=== PATIENT | female | born 1945 ===

== ENCOUNTER 2017-01-27 13:35 | Outpatient (CLI) | payer MEDICARE, OTHER ==
[2017-01-27 13:47] VITALS: BP 126/69
[2017-01-27] MEDS ORDERED: UNOBMED (15:21)
--- NOTE | 2017-01-27 15:23 | GI Initial Consult Note ---
History of Present Illness General Date patient seen: Jan 27, 2017 Time patient seen: 15:15 Referring physician: WIN Reason for Consultation: ABDOMINAL PAIN Present Illness HPI 71 year old female patient referred by Dr. Israel for evaluation of abdominal pain and bloating. Patient denies any changes in weight and changes in dietary habits. Patient unable to recall any medications at this moment, states she takes one for cholesterol, heart, depression and HTN. Home Meds Reported Medications Unable to Obtain Medications (UNABLE TO OBTAIN MEDS) 1 Ea Ea 01/27/17 Allergies: Coded Allergies: No Known Allergies (Verified Allergy, Unknown, 11/16/07) Patient History History Provided By: Patient PMH Narrative HTN cholesterol depression PSHx Hysterectomy Neck Family History Narrative Mother & Brother >> gastric CA Social History: Denies: smoking, alcohol use, drug use, other Review of Systems All Other Systems: negative except mentioned in HPI Physical Exam Vital Signs Date Time Temp Pulse Resp B/P (MAP) Pulse Ox O2 Delivery O2 Flow Rate FiO2 01/27/17 13:47 97.8 67 16 126/69 93 Sp02 EP Interpretation: reviewed General Appearance: well appearing, no apparent distress, alert Head: normocephalic EENT: PERRL/EOMI, normal ENT inspection, TMs normal Neck: supple Respiratory: normal breath sounds, no respiratory distress Cardiovascular: normal rate Gastrointestinal: normal inspection, non tender, soft Rectal: deferred Musculoskeletal: back normal Neurologic: normal inspection, alert, oriented x3, responsive Psychiatric: normal inspection, judgement/insight normal, memory normal Skin: normal inspection, normal color, no rash, warm/dry, palpation normal Lymphatic: normal inspection, no adenopathy GI: Plan Problems: (1) Colonoscopy planned (2) HTN (hypertension) (3) Elevated cholesterol (4) Depression (5) GERD (gastroesophageal reflux disease) (6) Bloating Plan EGD/colonoscopy scheduled for 01/29/17. - CLD & prep instructions given and acknowledged. Seen with Dr. Grubbs. Thank you for referring this patient. Hemalatha Lazcano N.P. Jan 27, 2017 15:23
== END 2017-01-27 14:00 | disposition home or self-care (01) ==
LOC: PAN 13:35
DX: K21.9 Gastro-esophageal reflux disease without esophagitis (principal); R14.0 Abdominal distension (gaseous); E78.00 Pure hypercholesterolemia, unspecified; I10 Essential (primary) hypertension; F32.9 Major depressive disorder, single episode, unspecified; Z90.710 Acquired absence of both cervix and uterus; Z80.0 Family history of malignant neoplasm of digestive organs
CPT/HCPCS: 99201

== ENCOUNTER 2017-01-29 08:22 | Day surgery (SDC) | payer MEDICARE, OTHER ==
[2017-01-29] VITALS (8 sets, daily range): BP systolic 120–138; BP diastolic 59–72
[~2017-01-29] VITALS: Ht 170 cm; Wt 77.1 kg
[~2017-01-29 08:22] MED LIST: UNOBMED
--- NOTE | 2017-01-29 09:02 | Anethesia Preoperative Eval ---
Anesthesia Pre-op PMH/ROS General Date of Evaluation: Jan 29, 2017 Time of Evaluation: 09:30 Anesthesiologist: Mendy ASA Score: ASA 2 Mallampati Score Class I : Soft palate, uvula, fauces, pillars visible Class II: Soft palate, uvula, fauces visible Class III: Soft palate, base of uvula visible Class IV: Only hard plate visible Mallampati Classification: Class II Surgeon: Romie Surgical Procedure: EGD/Colonoscopy Anesthesia History: none Family History: no anesthesia problems Allergies: Coded Allergies: No Known Allergies (Verified Allergy, Unknown, 11/16/07) Medications: see eMAR Past Medical History Cardiovascular: Reports: HTN, other - high cholosterol Pulmonary: Denies: asthma, COPD, ALLIE, other Gastrointestinal/Genitourinary: Reports: GERD Neurologic/Psychiatric: Reports: depression/anxiety Endocrine: Denies: DM, hypothyroidism, steroids, other HEENT: Denies: cataract (L), cataract (R), glaucoma, FOND [place] LAC (L), FOND DU LAC (R), other Hematology/Immune: Denies: anemia, DVT, bleeding disorder, other Musculoskeletal/Integumentary: Denies: OA, RA, DJD, DDD, edema, other Other: obesity Anesthesia Pre-op Phys. Exam Physician Exam Last Vital Signs Date Time Temp Pulse Resp B/P (MAP) Pulse Ox O2 Delivery O2 Flow Rate FiO2 01/29/17 08:52 98.5 60 18 138/72 95 Room Air Constitutional: NAD Neurologic: CN 2-12 intact Cardiovascular: RRR Respiratory: CTA Gastrointestinal: S/NT/ND Airway Exam Mallampati Score: Class II MO: full ROM: full Teeth: missing Dentures: upper, lower Anesthesia Pre-op A/P Labs reviewed on chart Studies Pre-op Studies: EKG - NSB Risk Assessment & Plan Plan: MAC Status Change Before Surgery: No Pre-Antibiotics Given Within 1 Hr of Incision: Jordana Morrison CRNA Jan 29, 2017 09:02
[2017-01-29] MEDS ORDERED: NKM (09:22)
[2017-01-29] MEDS ORDERED: CHOLESTEROL MED (09:25)
[2017-01-29] MEDS ORDERED: UNOBMED (09:27)
[2017-01-29] MEDS ORDERED: Midazolam 2mg/2ml Inj ONE (09:30)
[2017-01-29] MEDS ORDERED: Propofol 200mg/20ml IV ONE (09:30)
--- NOTE | 2017-01-29 09:41 | Short Stay Surgery H&P ---
History of Present Illness History of Present Illness Chief Complaint see recent consult HPI Venecia Zavala is a 71 year old female who was admitted on for Gerd,Colon Screening Patient History Allergies: Coded Allergies: No Known Allergies (Verified Allergy, Unknown, 11/16/07) PAST MEDICAL HISTORY: Past Surgeries: Social History: Medication History Miscellaneous Medications Unable to Obtain Medications (Unable To Obtain Meds), (Reported) [Cholesterol Med], Unknown Dose, (Reported) Physical Exam Vital Signs Last Vital Signs Date Time Temp Pulse Resp B/P (MAP) Pulse Ox O2 Delivery O2 Flow Rate FiO2 01/29/17 08:52 98.5 60 18 138/72 95 Room Air Plan Attestation Are the patient's medical conditions optimized for surgery? TERESA YANCEY Jan 29, 2017 09:41
--- NOTE | 2017-01-29 09:41 | Pre-Procedure Note/Attestation ---
Pre-Procedure Note/Attestation Complete Prior to Procedure Planned Procedure: not applicable Procedure Narrative: esophagogastroduodenoscopy and colonoscopy Indications for Procedure Pre-Operative Diagnosis: screening colon, GERD Attestation I attest that I discussed the nature of the procedure; its benefits; risks and complications; and alternatives (and the risks and benefits of such alternatives ), prior to the procedure, with the patient (or the patient's legal sales representative malt liquors). I attest that, if there was a reasonable possibility of needing a blood transfusion, the patient (or the patient's legal sales representative malt liquors) was given the [facility] standardized written summary, pursuant to the [place] Blood Safety Act ([place] Health and Safety Code # 1645, as amended). I attest that I re-evaluated the patient just prior to the surgery and that there has been no change in the patient's H&P, except as documented below: TERESA YANCEY Jan 29, 2017 09:41
[2017-01-29] MEDS ORDERED: fentaNYL 100 mcg/2 mL IV PRN (10:15)
--- NOTE | 2017-01-29 10:22 | Endoscopy Procedure Note ---
Endoscopy Procedure Note Indication for Procedure: screening colon, GERD Procedures Performed: EGD, colonoscopy Operative Findings/Diagnosis: 4 colon polyps, diverticulosis, gastritis Specimen: yes Pt Tolerated Procedure Well: Yes Anesthesiologist: sonia Anesthesia: MAC Implant(s) used?: No 50 yrs or older w/o bx or poly: Not Applicable 10yrs. F/U not recommended: Not Applicable TERESA YANCEY Jan 29, 2017 10:22
--- NOTE | 2017-01-29 10:39 | Immediate Post-Op Evaluation ---
Immediate Post-Op Evalulation Immediate Post-Op Evalulation Date of Evaluation: Jan 29, 2017 Time of Evaluation: 10:30 IV Fluids: 650 Estimated Blood Loss: 0 Blood Pressure Systolic: 126 Blood Pressure Diastolic: 60 Pulse Rate: 66 Respiratory Rate: 21 O2 Sat by Pulse Oximetry: 98 Temperature (Fahrenheit): 97.3 Pain Score (1-10): 0 Nausea: No Vomiting: No Patient Status: awake, reacts, patent Hydration Status: adequate Given Within 1 Hr of Incision: Jordana Morrison CRNA Jan 29, 2017 10:39
--- NOTE | 2017-01-29 10:41 | 48 Hour Post Anesthesia Eval ---
Post Anesthesia Evaluation Date of Evaluation: Jan 29, 2017 Time of Evaluation: 10:40 Blood Pressure Systolic: 130 0: 60 Pulse Rate: 66 Respiratory Rate: 22 Temperature (Fahrenheit): 97.5 O2 Sat by Pulse Oximetry: 100 Airway: patent Nausea: No Vomiting: No Hydration Status: adequate Mental Status/LOC: patient returned to baseline Follow-up care needed: patient intructions given Jordana Brooke CRNA Jan 29, 2017 10:41
--- NOTE | 2017-01-29 23:30 | Procedure Note ---
DATE OF PROCEDURE: 01/29/2017. SURGEON: Nick Grubbs M.D. PROCEDURE: Upper endoscopy with biopsy and colonoscopy with biopsy. ANESTHESIA: Per [place] MCKINNEY. INSTRUMENT: Olympus adult flexible upper endoscope and colonoscope. Indication: Screening colonoscopy evaluation and chronic gastroesophageal reflux disease. Reason for Procedure: The procedure, risks, benefits, and possible consequences, including hemorrhage, aspiration, perforation and infection, and alternative treatments, were explained to the patient/legal guardian by Dr. Nick Grubbs and the patient/legal guardian understood and accepted these risks. Procedure In Detail: After informed consent was obtained and the patient was adequately sedated, Olympus upper endoscope was advanced from mouth into the second portion of the duodenum and retroflexion was performed in the stomach. The patient had evidence of 1 small polyp with about 20 cm from the incisors, which was biopsied in the esophagus. The patient had evidence of antral changes suspicious for GAVE, which was biopsied. Random biopsy from antrum was also obtained to rule out H. pylori infection. At this time, the upper endoscope was retrieved and the patient was turned over for colonoscopy. First, a rectal exam was performed, which was normal. Then, the scope was advanced from the rectum into the cecum documented by appendiceal orifice, ileocecal valve, and upper quadrant palpation. Quality of prep was adequate except in the cecum and in the right-sided colon there was some solid material sitting in the cecum making examination of the cecum little bit difficult. The patient has total of 4 polyps all in the ascending colon. Actually, one of them was in the ileocecal valve, which was biopsied. The biggest polyp was measured roughly about 1 cm, removed with the snare polypectomy technique. There was a smaller one measured roughly about 5 mm and another one of almost about 5 mm. The patient had evidence of diverticulosis in the left colon. No acute diverticulitis were noticed. Retroflexion of rectum was performed showed evidence of internal hemorrhoids. SUMMARY FINDINGS: 1. Esophageal polyps status post biopsy. 2. 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 3. Gastritis, status post biopsy. 4. Four colonic polyp removed, see above for details. 5. Diverticulosis. 6. Internal hemorrhoids. Recommendations: Follow biopsy results. Depending on the biopsy from the colonoscopy, we will decide to do a colonoscopy in minimum 3 years or may be earlier if needed. I want to thank Dr. Israel, for this kind referral. Nick Grubbs M.D. DR: ANUJA JOB#: [id number] CC: Tl Israel M.D.; Fax#: [phone]
== END 2017-01-29 11:45 | disposition home or self-care (01) ==
LOC: GAS 08:22
DX: Z12.11 Encounter for screening for malignant neoplasm of colon (principal); K21.9 Gastro-esophageal reflux disease without esophagitis; K57.30 Diverticulosis of large intestine without perforation or abscess without bleeding; K64.8 Other hemorrhoids; K29.50 Unspecified chronic gastritis without bleeding; D13.0 Benign neoplasm of esophagus; K63.5 Polyp of colon; B96.81 Helicobacter pylori [H. pylori] as the cause of diseases classified elsewhere; E78.00 Pure hypercholesterolemia, unspecified; I10 Essential (primary) hypertension; F41.8 Other specified anxiety disorders; E66.9 Obesity, unspecified
CPT/HCPCS: 43239; 45380; 45385; 93005; J2250; J2704; 94003; 94150

== ENCOUNTER 2017-02-11 09:32 | Outpatient (CLI) | payer MEDICARE, OTHER ==
[~2017-02-11 09:32] MED LIST changes: +CHOLESTEROL MED; +NKM
[2017-02-11 10:08] VITALS: BP 126/69
[2017-02-11] MEDS ORDERED: BISOPROLOL FUMAR5 MG PO (10:15)
[2017-02-11] MEDS ORDERED: ZANTAC150 MG ORAL (10:15)
[2017-02-11] MEDS ORDERED: ATORVASTATIN CA20 MG ORAL (10:15)
[2017-02-11] MEDS ORDERED: NEXIUM40 MG ORAL (10:15)
[2017-02-11] MEDS ORDERED: DONEPEZIL HCL10 MG ORAL (10:15)
[2017-02-11] MEDS ORDERED: CITALOPRAM HBR20 M1 ORAL (10:15)
--- NOTE | 2017-02-11 10:50 | GI Progress Note ---
Assessment/Plan Problems: (1) Elevated cholesterol ICD Codes: E78.00 - Pure hypercholesterolemia, unspecified SNOMED: 00282866 (2) HTN (hypertension) ICD Codes: I10 - Essential (primary) hypertension SNOMED: 77131631 (3) GERD (gastroesophageal reflux disease) ICD Codes: K21.9 - Gastro-esophageal reflux disease without esophagitis SNOMED: 995537072 (4) Bloating ICD Codes: R14.0 - Abdominal distension (gaseous) SNOMED: 425454261 Status: stable Status Narrative Seen with Dr. Grubbs. Assessment/Plan SUMMARY FINDINGS reviewed with patient: 1. Esophageal polyps status post biopsy. 2. 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 3. Gastritis, status post biopsy. 4. Four colonic polyp removed, see above for details. 5. Diverticulosis. 6. Internal hemorrhoids. Recommendations: patient will be directly admitted to [facility] under Dr. Israel for severe rectal bleed Follow biopsy results >> - Intestina metaplasia involving 30% of biopsy tissue in the antrum. - H. Pylori positive >> will require outpatient 8 week course tx will repeat colonoscopy tomorrow after admitted Subjective Subjective here for colonoscopy review had an episode of massive rectal bleed x 1 Objective Last 24 Hour Vital Signs Date Time Temp Pulse Resp B/P (MAP) Pulse Ox O2 Delivery O2 Flow Rate FiO2 02/11/17 10:08 98.1 58 16 126/69 General Appearance: no apparent distress, alert Cardiovascular: normal rate Respiratory/Chest: normal breath sounds, no respiratory distress Abdominal Exam: normal bowel sounds, non tender, soft Extremities: normal range of motion Hemalatha Lazcano N.P. Feb 11, 2017 10:50
== END 2017-02-11 10:00 | disposition home or self-care (01) ==
LOC: PAN 09:32
DX: E78.00 Pure hypercholesterolemia, unspecified (principal); I10 Essential (primary) hypertension; K21.9 Gastro-esophageal reflux disease without esophagitis; R14.0 Abdominal distension (gaseous)
CPT/HCPCS: 99211

== ENCOUNTER 2017-02-11 11:04 | Inpatient (IN) | payer MEDICARE, OTHER ==
[~2017-02-11] VITALS: Ht 165.1 cm; Wt 77.6 kg
[~2017-02-11 11:04] MED LIST changes: +ATORVASTATIN CA20 MG ORAL; +BISOPROLOL FUMAR5 MG PO; +CITALOPRAM HBR20 M1 ORAL; +DONEPEZIL HCL10 MG ORAL; +NEXIUM40 MG ORAL; +ZANTAC150 MG ORAL
--- NOTE | 2017-02-11 14:50 | GI Initial Consult Note ---
Claudia Lazcanoh Anshul N.PMegan 02/11/17 1450: History of Present Illness General Date patient seen: Feb 11, 2017 Time patient seen: 14:00 Reason for Hospitalization: RECTAL BLEED Referring physician: COY Reason for Consultation: RECTAL BLEED Present Illness HPI 71 year old female referred by Dr. Israel was seen by us in the outpatient clinic. The patient had recently undergone a EGD/colonoscopy found with 4 colon polyps, diverticulosis, gastritis. She presented to the clinic today with complaint of massive rectal bleed x 1 in which we felt required a direct admission into the hospital. The patient is A&Ox4 NAD with no active s/sx of N/ V/D at this time. She c/o of abdominal pain and bloating. Denies any weight loss or changes in dietary habits recently. Endoscopy Procedure Note Indication for Procedure: screening colon, GERD Procedures Performed: EGD, colonoscopy Operative Findings/Diagnosis: 4 colon polyps, diverticulosis, gastritis Home Meds Reported Medications Citalopram Hydrobromide* (CITALOPRAM HBR*) 20 Mg Tablet, 20 MG ORAL DAILY, TAB 02/11/17 Bisoprolol Fumarate (BISOPROLOL FUMARATE) 5 Mg Tablet, 5 MG PO DAILY, TAB 02/11/17 Esomeprazole Magnesium (NEXIUM) 40 Mg Capsule.dr, 40 MG ORAL DAILY, CAP 02/11/17 Ranitidine Hcl* (ZANTAC*) 150 Mg Tablet, 150 MG ORAL DAILY, #30 TAB 0 Refills 02/11/17 Donepezil Hcl* (DONEPEZIL HCL*) 10 Mg Tablet, 10 MG ORAL DAILY, TAB 02/11/17 Atorvastatin Calcium* (ATORVASTATIN CALCIUM*) 20 Mg Tablet, 10 MG ORAL BEDTIME, TAB 02/11/17 Med list reviewed/reconciled: Yes Allergies: Coded Allergies: No Known Allergies (Verified Allergy, Unknown, 11/16/07) Patient History History Provided By: Patient, Medical Record PMH Narrative HTN cholesterol depression PSHx Hysterectomy Neck Family History Narrative Mother & Brother >> gastric CA Social History: Denies: smoking, alcohol use, drug use, other Review of Systems All Other Systems: negative except mentioned in HPI Physical Exam Sp02 EP Interpretation: reviewed General Appearance: well appearing, no apparent distress, alert Head: normocephalic EENT: PERRL/EOMI, normal ENT inspection Neck: supple Respiratory: normal breath sounds, no respiratory distress Cardiovascular: normal rate Gastrointestinal: normal inspection, non tender, soft Rectal: deferred Musculoskeletal: back normal Neurologic: normal inspection, alert, oriented x3, responsive Psychiatric: normal inspection, judgement/insight normal, memory normal Skin: normal inspection, normal color, no rash, warm/dry Lymphatic: normal inspection, no adenopathy Current Medications Current Medications Medications (Trade) Dose Ordered Sig/Sadie Route PRN Reason Start Time Stop Time Status Last Admin Dose Admin Acetaminophen (Tylenol) 650 mg Q4H PRN ORAL Mild Pain (Pain Scale 1-3) 02/11/17 12:45 03/13/17 12:44 UNV Bisacodyl (Dulcolax) 10 mg ONCE ONCE ORAL 02/11/17 16:00 02/11/17 16:01 UNV Dextrose (Dextrose 50%) STAT PRN IV Hypoglycemia 02/11/17 12:45 03/13/17 12:44 UNV Magnesium Citrate (Citrate Of Magnesia) 300 ml ONCE ONCE ORAL 02/11/17 16:00 02/11/17 16:01 UNV Ondansetron HCl (Zofran) 4 mg Q6H PRN IVP Nausea & Vomiting 02/11/17 12:45 03/13/17 12:44 UNV Pantoprazole (Protonix) 40 mg DAILY IV 02/12/17 09:00 03/14/17 08:59 UNV Polyethylene Glycol (Miralax) 238 gm ONCE ONCE ORAL 02/11/17 16:00 02/11/17 16:01 UNV Sodium Phosphate (Fleet's Sodium Phosl Enema) 133 ml ONCE ONCE RECTAL 02/11/17 23:00 02/11/17 23:01 UNV GI: Plan Problems: (1) Colonoscopy planned (2) GERD (gastroesophageal reflux disease) (3) HTN (hypertension) (4) Rectal bleeding Plan Endoscopy Procedure Note - 01/29/17 Indication for Procedure: screening colon, GERD Procedures Performed: EGD, colonoscopy Operative Findings/Diagnosis: 4 colon polyps, diverticulosis, gastritis will repeat colonoscopy tomorrow. - CLD, NPO @ [place], start IVFs D5 1/2 NS & 75cc - hold all blood thinners tonight ppi IV fu labs note* patient on Eliquis, last time she had taken the medication was yesterday morning >> med must be discontinued min [address] Yancey. Thank you for referring this patient, we will follow inpatient. TERESA YANCEY 02/13/17 1448: History of Present Illness General Reason for Hospitalization: RECTAL BLEED Present Illness Home Meds Reported Medications Citalopram Hydrobromide* (CITALOPRAM HBR*) 20 Mg Tablet, 20 MG ORAL DAILY, TAB 02/11/17 Bisoprolol Fumarate (BISOPROLOL FUMARATE) 5 Mg Tablet, 5 MG PO DAILY, TAB 02/11/17 Esomeprazole Magnesium (NEXIUM) 40 Mg Capsule.dr, 40 MG ORAL DAILY, CAP 02/11/17 Ranitidine Hcl* (ZANTAC*) 150 Mg Tablet, 150 MG ORAL DAILY, #30 TAB 0 Refills 02/11/17 Donepezil Hcl* (DONEPEZIL HCL*) 10 Mg Tablet, 10 MG ORAL DAILY, TAB 02/11/17 Atorvastatin Calcium* (ATORVASTATIN CALCIUM*) 20 Mg Tablet, 10 MG ORAL BEDTIME, TAB 02/11/17 Allergies: Coded Allergies: No Known Allergies (Verified Allergy, Unknown, 11/16/07) GI: Plan Plan The patient was seen and examined at bedside and all new and available data was reviewed in the patients chart. I agree with the above findings, impression and plan. (Patient seen earlier today. Signature stamp does not reflect patient encounter time.). -Claudia Alfaro MDh Anshul Rodriguez Feb 11, 2017 14:50 TERESA YANCEY Feb 13, 2017 14:48
[2017-02-11 15:06] LABS: BASOPHILS % (AUTO) 0.5 % (0.0-2.0); EOSINOPHILS % (AUTO) 0.1 % (0.0-3.0); LYMPHOCYTES % (AUTO) 34.5 % (20.0-45.0); MEAN CORPUSCULAR HEMOGLOBIN 30.1 PG (27.0-31.0); MEAN CORPUSCULAR HGB CONC 33.2 G/DL (32.0-36.0); MEAN CORPUSCULAR VOLUME 91 FL (80-99); MEAN PLATELET VOLUME 13.7 FL (6.5-10.1); MONOCYTES % (AUTO) 8.2 % (1.0-10.0); NEUTROPHILS % (AUTO) 56.7 % (45.0-75.0); PLATELET COUNT 145 K/UL (150-450); RED BLOOD COUNT 4.58 M/UL (4.20-5.40); RED CELL DISTRIBUTION WIDTH 12.3 % (11.6-14.8); WHITE BLOOD COUNT 6.6 K/UL (4.8-10.8)
[2017-02-11 15:35] LABS: ALANINE AMINOTRANSFERASE 11 U/L (3-33); ANION GAP 11 (5-15); ASPARTATE AMINO TRANSFERASE 15 U/L (5-40); CALCIUM 9.7 mg/dL (8.6-10.2); CARBON DIOXIDE 25 mEQ/L (20-30); CHLORIDE 100 mEQ/L (98-107); CREATININE 0.8 mg/dL (0.5-0.9); HEMOLYSIS 5; POTASSIUM 4.5 mEQ/L (3.4-4.9); SODIUM 136 mEQ/L (135-145); TOTAL PROTEIN 7.2 g/dL (6.6-8.7)
[2017-02-11 16:00] VITALS: BP 140/69
[2017-02-11] MEDS ORDERED: Bisacodyl EC 5mg tab ORAL ONE (17:00)
[2017-02-11] MEDS ORDERED: D5 1/2NS 1,000 ML IV SCH ×2 (17:15→20:00)
[2017-02-11] MEDS ORDERED: Magnesium Citrate Liq Btl ORAL ONE (17:30)
--- NOTE | 2017-02-11 17:52 | General Progress Note ---
Assessment/Plan Status: stable Assessment/Plan 1. GI bleeding - possibly due to eliquis vs recent colonoscopy - type and cross 2 units and IV fluid. IV protonix. GI following. 2. HTN - cont bisoprolol 5 mg daily and Avapro 75 mg 1/2 PO daily hold for SBP less than 110. 3. CAD - hold eliquis for now. cardiology eval. 4. Hyperlipidemia - on lipitor 10 mg one qhs 5. GERD and gastritis - on IV protonix. 6. Anxiety and depression - start home med, celexa. 7. Lumbar rediculopathy and spinal stenosis 8. Insomnia - taking clonazepam 1 mg one po qhs prn. 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 Subjective Date patient seen: Feb 11, 2017 Time patient seen: 17:00 Constitutional: Reports: weakness HEENT: Reports: no symptoms Cardiovascular: Reports: lightheadedness Respiratory: Reports: no symptoms Gastrointestinal/Abdominal: Reports: rectal bleeding Genitourinary: Reports: no symptoms Neurologic/Psychiatric: Reports: no symptoms Endocrine: Reports: no symptoms Hematologic/Lymphatic: Reports: no symptoms Allergies: Coded Allergies: No Known Allergies (Verified Allergy, Unknown, 11/16/07) Subjective Pt was seen this afternoon. she had multiple episodes of bleeding when going to bathroom. she states she started bleeding since 4 AM today. she had colonoscopy recently. she is on Eliquis 5 mg bid with last dose taken at 4 pm yesterday. she denies any sob or chest pain. she is lightheaded. Objective Last 24 Hour Vital Signs Date Time Temp Pulse Resp B/P (MAP) Pulse Ox O2 Delivery O2 Flow Rate FiO2 02/11/17 16:00 97.3 59 17 140/69 96 Room Air Laboratory Tests 02/11/17 14:35: White Blood Count 6.6, Red Blood Count 4.58, Hemoglobin 13.8, Hematocrit 41.6, Mean Corpuscular Volume 91, Mean Corpuscular Hemoglobin 30.1, Mean Corpuscular Hemoglobin Concent 33.2, Red Cell Distribution Width 12.3, Platelet Count 145L, Mean Platelet Volume 13.7H, Neutrophils (%) (Auto) 56.7, Lymphocytes (%) (Auto) 34.5, Monocytes (%) (Auto) 8.2, Eosinophils (%) (Auto) 0.1, Basophils (%) (Auto ) 0.5, Sodium Level 136, Potassium Level 4.5, Chloride Level 100, Carbon Dioxide Level 25, Anion Gap 11, Blood Urea Nitrogen 14, Creatinine 0.8, Estimat Glomerular Filtration Rate , Glucose Level 102, Calcium Level 9.7, Total Bilirubin 0.4, Aspartate Amino Transf (AST/SGOT) 15, Alanine Aminotransferase ( ALT/SGPT) 11, Alkaline Phosphatase 57, Total Protein 7.2, Albumin 3.7, Globulin 3.5, Albumin/Globulin Ratio 1.0 Height (Feet): 5 Height (Inches): 6.00 Weight (Pounds): 172 General Appearance: no apparent distress, alert EENT: normal ENT inspection Neck: non-tender, normal alignment, supple Cardiovascular: normal peripheral pulses, normal rate, regular rhythm Respiratory/Chest: chest wall non-tender, lungs clear, normal breath sounds Abdomen: non tender, soft, other - rectal bleeding Extremities: normal range of motion, non-tender Edema: no edema noted Arm (L), no edema noted Arm (R), no edema noted Leg (L), no edema noted Leg (R), no edema noted Pedal (L), no edema noted Pedal (R), no edema noted Generalized Neurologic: no motor/sensory deficits, alert, oriented x 3, responsive Skin: warm/dry Lymphatic: normal anterior cervical (L), normal anterior cervical (R), normal posterior cervical (L), normal posterior cervical (R), normal submandibular (L) , normal submandibular (R), normal supraclavicular (L), normal supraclavicular ( R), normal axillary (L), normal axillary (R), normal inguinal (L), normal inguinal (R), normal other IVETT WALDEN Feb 11, 2017 17:52
[2017-02-11] MEDS ORDERED: Polyethylene Glycol 238gm bottle ORAL ONE (18:00)
[2017-02-11] MEDS ORDERED: Fleet's Enema 133ml RECTAL ONE (18:00)
--- NOTE | 2017-02-11 18:22 | Cardiac Electrophysiology PN ---
Subjective Subjective [id number] Objective Last 24 Hour Vital Signs Date Time Temp Pulse Resp B/P (MAP) Pulse Ox O2 Delivery O2 Flow Rate FiO2 02/11/17 16:00 97.3 59 17 140/69 96 Room Air Laboratory Tests Test 02/11/17 14:35 White Blood Count 6.6 K/UL (4.8-10.8) Red Blood Count 4.58 M/UL (4.20-5.40) Hemoglobin 13.8 G/DL (12.0-16.0) Hematocrit 41.6 % (37.0-47.0) Mean Corpuscular Volume 91 FL (80-99) Mean Corpuscular Hemoglobin 30.1 PG (27.0-31.0) Mean Corpuscular Hemoglobin Concent 33.2 G/DL (32.0-36.0) Red Cell Distribution Width 12.3 % (11.6-14.8) Platelet Count 145 K/UL (150-450) L Mean Platelet Volume 13.7 FL (6.5-10.1) H Neutrophils (%) (Auto) 56.7 % (45.0-75.0) Lymphocytes (%) (Auto) 34.5 % (20.0-45.0) Monocytes (%) (Auto) 8.2 % (1.0-10.0) Eosinophils (%) (Auto) 0.1 % (0.0-3.0) Basophils (%) (Auto) 0.5 % (0.0-2.0) Sodium Level 136 mEQ/L (135-145) Potassium Level 4.5 mEQ/L (3.4-4.9) Chloride Level 100 mEQ/L (98-107) Carbon Dioxide Level 25 mEQ/L (20-30) Anion Gap 11 (5-15) Blood Urea Nitrogen 14 mg/dL (7-23) Creatinine 0.8 mg/dL (0.5-0.9) Estimat Glomerular Filtration Rate mL/min (>60) Glucose Level 102 mg/dL (74-106) Calcium Level 9.7 mg/dL (8.6-10.2) Total Bilirubin 0.4 mg/dL (0.0-1.2) Aspartate Amino Transf (AST/SGOT) 15 U/L (5-40) Alanine Aminotransferase (ALT/SGPT) 11 U/L (3-33) Alkaline Phosphatase 57 U/L (35-104) Total Protein 7.2 g/dL (6.6-8.7) Albumin 3.7 g/dL (3.5-5.2) Globulin 3.5 g/dL Albumin/Globulin Ratio 1.0 (1.0-2.7) NAI COOK Feb 11, 2017 18:22
[2017-02-11 19:04] VITALS: BP 163/117
[2017-02-11 20:00] VITALS: BP 139/64
[2017-02-11 20:31] LABS: BASOPHILS % (AUTO) 0.7 % (0.0-2.0); EOSINOPHILS % (AUTO) 0.1 % (0.0-3.0); LYMPHOCYTES % (AUTO) 28.8 % (20.0-45.0); MEAN CORPUSCULAR HEMOGLOBIN 29.6 PG (27.0-31.0); MEAN CORPUSCULAR HGB CONC 31.9 G/DL (32.0-36.0); MEAN CORPUSCULAR VOLUME 93 FL (80-99); MEAN PLATELET VOLUME 11.9 FL (6.5-10.1); MONOCYTES % (AUTO) 7.6 % (1.0-10.0); NEUTROPHILS % (AUTO) 62.8 % (45.0-75.0); PLATELET COUNT 144 K/UL (150-450); RED BLOOD COUNT 4.23 M/UL (4.20-5.40); RED CELL DISTRIBUTION WIDTH 12.4 % (11.6-14.8); WHITE BLOOD COUNT 8.3 K/UL (4.8-10.8)
[2017-02-11] MEDS ORDERED: Donepezil 10mg tab ORAL SCH ×2 (21:00)
[2017-02-12] VITALS (32 sets, daily range): BP systolic 85–140; BP diastolic 42–75
[2017-02-12] MEDS: D5 1/2NS 1,000 ML IV SCH ×3 (00:51→19:42)
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
--- NOTE | 2017-02-12 04:30 | Consultation ---
DATE OF CONSULTATION: 02/11/2017 CARDIOLOGY CONSULTATION REFERRING PHYSICIAN: Tl Israel M.D. Reason For Consultation: Management of hypertension and paroxysmal atrial fibrillation. History Of Present Illness: The patient is a 71-year-old lady with history of hypertension and paroxysmal atrial fibrillation, on Eliquis, who recently underwent EGD and colonoscopy and was found to have four polyps that was removed by Dr. Grubbs. The patient presented to the clinic and was found to have massive rectal bleed. The patient was directly admitted to the hospital. Cardiology consultation was obtained for further evaluation. On direct questioning, the patient complains of abdominal pain and bloating, but denies any chest pain or syncope or presyncope. PAST MEDICAL HISTORY: 1. Hypertension. 2. Paroxysmal atrial fibrillation. 3. History of four chronic polyps removal. 4. Hyperlipidemia. PAST SURGICAL HISTORY: Hysterectomy. MEDICATIONS: Per reconciliation. SOCIAL HISTORY: Does not smoke or drink alcohol. Lives with family. FAMILY HISTORY: Positive for mother and brother had gastric cancer. Review of Systems: Review of systems was performed and was negative other than what was mentioned in the history of present illness. PHYSICAL EXAMINATION: Vital Signs: Blood pressure is 140/69, pulse 60, respirations 18, and she is afebrile. HEAD AND NECK: No JVD. LUNGS: Clear. CARDIOVASCULAR: Regular S1 and S2 with no gallop or murmur. ABDOMEN: Soft. EXTREMITIES: No pitting edema. Laboratory And Diagnostic Data: Show white count of 6.6, hemoglobin 13.9, hematocrit 41.6, and platelet count of 145,000. Sodium 136, potassium 4.5, BUN of 14, creatinine of 0.8, and glucose of 102. ASSESSMENT AND PLAN: 1. Paroxysmal atrial fibrillation. The patient was on Eliquis, that was discontinued obviously in view of rectal bleed. We will transfer the patient to telemetry, get an EKG and echocardiogram for closer evaluation. The patient is also on bisoprolol that will help with rate control during atrial fibrillation episode. 2. Hypertension, on Zebeta (bisoprolol) 5 mg daily as well as Avapro 37.5 mg daily. 3. Hyperlipidemia, on Lipitor. 4. Rectal bleed. The patient with recent esophagogastroduodenoscopy and polyp removal. Further evaluation by Dr. Grubbs, currently on Protonix. 5. Dementia, on Aricept. 6. Depression. Klonopin and Celexa. Thank you very much, Dr. Israel, for allowing me to participate in the care of this patient. Please do not hesitate to contact me for any questions regarding my evaluation. The case was discussed with the nurse as well as Dr. Israel as well. Kunal Luna M.D. DR: SILVANA JOB#: [id number] CC:
[2017-02-12 05:53] LABS: BASOPHILS % (AUTO) 0.4 % (0.0-2.0); MEAN CORPUSCULAR HEMOGLOBIN 31.7 PG (27.0-31.0); MEAN CORPUSCULAR HGB CONC 34.9 G/DL (32.0-36.0); MEAN CORPUSCULAR VOLUME 91 FL (80-99); MEAN PLATELET VOLUME 12.1 FL (6.5-10.1); MONOCYTES % (AUTO) 8.7 % (1.0-10.0); NEUTROPHILS % (AUTO) 57.9 % (45.0-75.0); PLATELET COUNT 136 K/UL (150-450); RED BLOOD COUNT 3.68 M/UL (4.20-5.40); RED CELL DISTRIBUTION WIDTH 12.7 % (11.6-14.8); WHITE BLOOD COUNT 6.6 K/UL (4.8-10.8)
[2017-02-12 06:17] LABS: PROTHROMBIN TIME 10.7 SEC (9.30-11.50)
[2017-02-12 06:22] LABS: TROPONIN I < 0.30 ng/mL (<=0.30)
[2017-02-12 06:33] LABS: ANION GAP 11 (5-15); CALCIUM 8.8 mg/dL (8.6-10.2); CARBON DIOXIDE 27 mEQ/L (20-30); CHLORIDE 103 mEQ/L (98-107); CREATININE 0.9 mg/dL (0.5-0.9); HEMOLYSIS 3; POTASSIUM 4.5 mEQ/L (3.4-4.9); SODIUM 141 mEQ/L (135-145)
[2017-02-12] MEDS ORDERED: Pantoprazole Inj IV SCH ×3 (09:00)
[2017-02-12] MEDS ORDERED: Citalopram Hydrobromide 10mg Tab ORAL SCH ×2 (09:00)
[2017-02-12] MEDS ORDERED: Citalopram 20mg Tab ORAL SCH (09:00)
--- NOTE | 2017-02-12 10:34 | Pre-Procedure Note/Attestation ---
Pre-Procedure Note/Attestation Complete Prior to Procedure Planned Procedure: not applicable Procedure Narrative: colonoscopy Indications for Procedure Pre-Operative Diagnosis: rectal bleeding Attestation I attest that I discussed the nature of the procedure; its benefits; risks and complications; and alternatives (and the risks and benefits of such alternatives ), prior to the procedure, with the patient (or the patient's legal safety representative). I attest that, if there was a reasonable possibility of needing a blood transfusion, the patient (or the patient's legal safety representative) was given the [facility] standardized written summary, pursuant to the [place] Blood Safety Act ([place] Health and Safety Code # 1645, as amended). I attest that I re-evaluated the patient just prior to the surgery and that there has been no change in the patient's H&P, except as documented below: TERESA YANCEY Feb 12, 2017 10:34
[2017-02-12] MEDS ORDERED: NS 550ML IV ONE (10:50)
--- NOTE | 2017-02-12 11:08 | Endoscopy Procedure Note ---
Endoscopy Procedure Note Indication for Procedure: rectal bleed Procedures Performed: colonoscopy Operative Findings/Diagnosis: diverticulosis Specimen: yes Pt Tolerated Procedure Well: Yes Estimated Blood Loss: none Anesthesiologist: sonia Anesthesia: MAC Implant(s) used?: No 50 yrs or older w/o bx or poly: Not Applicable 10yrs. F/U not recommended: Not Applicable TERESA YANCEY Feb 12, 2017 11:08
--- NOTE | 2017-02-12 11:09 | Immediate Post-Op Evaluation ---
Immediate Post-Op Evalulation Immediate Post-Op Evalulation Date of Evaluation: Feb 12, 2017 Time of Evaluation: 11:09 IV Fluids: NSS 100 ml Blood Products: 0 Estimated Blood Loss: 0 Urinary Output: 0 Pain Score (1-10): 0 Nausea: No Vomiting: No Patient Status: awake, reacts Hydration Status: adequate Given Within 1 Hr of Incision: Jordana Morrison CRNA Feb 12, 2017 11:09
--- NOTE | 2017-02-12 11:10 | 48 Hour Post Anesthesia Eval ---
Post Anesthesia Evaluation Date of Evaluation: Feb 12, 2017 Airway: patent Nausea: No Pain Intensity: 0 Hydration Status: adequate Mental Status/LOC: patient returned to baseline Follow-up care needed: patient intructions given Jordana Brooke CRNA Feb 12, 2017 11:10
--- NOTE | 2017-02-12 11:27 | Immediate Post-Op Evaluation ---
Immediate Post-Op Evalulation Immediate Post-Op Evalulation Date of Evaluation: Feb 12, 2017 Time of Evaluation: 11:20 IV Fluids: NSS 150 ml Blood Products: 0 Estimated Blood Loss: 0 Urinary Output: 0 Blood Pressure Systolic: 90 Blood Pressure Diastolic: 44 Pulse Rate: 54 Respiratory Rate: 16 O2 Sat by Pulse Oximetry: 99 Temperature (Fahrenheit): 97.5 Pain Score (1-10): gas pain Nausea: No Vomiting: No Patient Status: awake, reacts Hydration Status: adequate Given Within 1 Hr of Incision: Jordana Morrison CRNA Feb 12, 2017 11:26
--- NOTE | 2017-02-12 11:28 | 48 Hour Post Anesthesia Eval ---
Post Anesthesia Evaluation Date of Evaluation: Feb 12, 2017 Time of Evaluation: 11:27 Blood Pressure Systolic: 90 0: 54 Pulse Rate: 55 Respiratory Rate: 18 Temperature (Fahrenheit): 97.5 O2 Sat by Pulse Oximetry: 100 Airway: patent Nausea: No Vomiting: No Pain Intensity: 0 Hydration Status: adequate Mental Status/LOC: patient returned to baseline Follow-up care needed: patient intructions given Jordana Brooke CRNA Feb 12, 2017 11:28
[2017-02-12] MEDS: Cefepime HCl 1 GM in D5W 55 ML IVPB SCH ×2 (12:26→22:42)
[2017-02-12 14:13] LABS: REFLEX LACTIC ACID YES OR NO YES
--- NOTE | 2017-02-12 14:13 | Cardiac Electrophysiology PN ---
Assessment/Plan Assessment/Plan 1. Paroxysmal atrial fibrillation. Eliquis was discontinued in view of rectal bleed. Cardizem drip DCed. Start Cardizem 60 tid. 2. Hypertension, DC Zebeta. DC Avapro. Start Cardizem 60 tid. 3. Hyperlipidemia, on Lipitor. 4. Rectal bleed. S/P Colonoscopy by Dr. Grubbs, currently on Protonix. 5. Dementia, on Aricept. 6. Depression. Klonopin and Celexa. DW RN and son at bedside Subjective Subjective Converted to SR at 4 am on Cardizem drip that was DCed 2 hours ago per my order. Had Colonoscopy today Objective Last 24 Hour Vital Signs Date Time Temp Pulse Resp B/P (MAP) Pulse Ox O2 Delivery O2 Flow Rate FiO2 02/12/17 13:00 55 14 89/47 99 Nasal Cannula 2.0 02/12/17 12:30 55 14 105/48 99 Nasal Cannula 2.0 02/12/17 12:00 50 02/12/17 12:00 56 16 97/53 99 Nasal Cannula 2.0 02/12/17 11:30 98.0 53 14 85/42 99 Nasal Cannula 2.0 02/12/17 11:28 55 18 100 02/12/17 11:26 54 16 99 02/12/17 10:00 84 16 133/55 100 Nasal Cannula 2.0 02/12/17 09:44 124/57 02/12/17 09:38 61 124/57 02/12/17 09:30 61 15 108/57 99 Nasal Cannula 2.0 02/12/17 09:00 61 11 124/57 99 Nasal Cannula 2.0 02/12/17 08:30 64 11 140/57 99 Nasal Cannula 2.0 02/12/17 08:00 60 02/12/17 08:00 98.1 61 12 115/55 99 Nasal Cannula 2.0 02/12/17 07:30 61 15 125/55 99 2.0 02/12/17 07:00 61 14 96/72 99 Nasal Cannula 2.0 02/12/17 06:30 63 19 110/75 99 Nasal Cannula 2.0 02/12/17 06:00 63 19 106/75 99 Nasal Cannula 2.0 02/12/17 05:30 62 19 131/56 99 Nasal Cannula 2.0 02/12/17 05:00 62 19 132/56 99 Nasal Cannula 2.0 02/12/17 04:30 62 16 116/64 99 Nasal Cannula 2.0 02/12/17 04:00 97.6 66 18 111/66 99 Nasal Cannula 2.0 02/12/17 03:30 65 18 116/72 99 Nasal Cannula 2.0 02/12/17 03:00 65 21 114/61 97 Nasal Cannula 2.0 02/12/17 02:30 99 21 115/65 97 Nasal Cannula 2.0 02/12/17 02:00 94 21 114/61 97 Nasal Cannula 2.0 02/12/17 01:30 102 14 109/66 99 Room Air 02/12/17 00:49 123 110/57 02/11/17 20:00 160 02/11/17 19:04 96.6 112 163/117 97 Room Air 02/11/17 16:00 97.3 59 17 140/69 96 Room Air Intake and Output 02/12/17 02/13/17 19:00 07:00 Intake Total 632.5 ml Balance 632.5 ml Intake Oral 120 ml IV Total 512.5 ml # Voids 1 # Bowel Movements 1 Laboratory Tests Test 02/11/17 14:35 02/11/17 20:07 02/12/17 04:50 02/12/17 13:32 White Blood Count 6.6 K/UL (4.8-10.8) 8.3 K/UL (4.8-10.8) 6.6 K/UL (4.8-10.8) Red Blood Count 4.58 M/UL (4.20-5.40) 4.23 M/UL (4.20-5.40) 3.68 M/UL (4.20-5.40) L Hemoglobin 13.8 G/DL (12.0-16.0) 12.5 G/DL (12.0-16.0) 11.7 G/DL (12.0-16.0) L Hematocrit 41.6 % (37.0-47.0) 39.2 % (37.0-47.0) 33.5 % (37.0-47.0) L Mean Corpuscular Volume 91 FL (80-99) 93 FL (80-99) 91 FL (80-99) Mean Corpuscular Hemoglobin 30.1 PG (27.0-31.0) 29.6 PG (27.0-31.0) 31.7 PG (27.0-31.0) H Mean Corpuscular Hemoglobin Concent 33.2 G/DL (32.0-36.0) 31.9 G/DL (32.0-36.0) L 34.9 G/DL (32.0-36.0) Red Cell Distribution Width 12.3 % (11.6-14.8) 12.4 % (11.6-14.8) 12.7 % (11.6-14.8) Platelet Count 145 K/UL (150-450) L 144 K/UL (150-450) L 136 K/UL (150-450) L Mean Platelet Volume 13.7 FL (6.5-10.1) H 11.9 FL (6.5-10.1) H 12.1 FL (6.5-10.1) H Neutrophils (%) (Auto) 56.7 % (45.0-75.0) 62.8 % (45.0-75.0) 57.9 % (45.0-75.0) Lymphocytes (%) (Auto) 34.5 % (20.0-45.0) 28.8 % (20.0-45.0) 33.0 % (20.0-45.0) Monocytes (%) (Auto) 8.2 % (1.0-10.0) 7.6 % (1.0-10.0) 8.7 % (1.0-10.0) Eosinophils (%) (Auto) 0.1 % (0.0-3.0) 0.1 % (0.0-3.0) 0.0 % (0.0-3.0) Basophils (%) (Auto) 0.5 % (0.0-2.0) 0.7 % (0.0-2.0) 0.4 % (0.0-2.0) Sodium Level 136 mEQ/L (135-145) 141 mEQ/L (135-145) Potassium Level 4.5 mEQ/L (3.4-4.9) 4.5 mEQ/L (3.4-4.9) Chloride Level 100 mEQ/L (98-107) 103 mEQ/L (98-107) Carbon Dioxide Level 25 mEQ/L (20-30) 27 mEQ/L (20-30) Anion Gap 11 (5-15) 11 (5-15) Blood Urea Nitrogen 14 mg/dL (7-23) 18 mg/dL (7-23) Creatinine 0.8 mg/dL (0.5-0.9) 0.9 mg/dL (0.5-0.9) Estimat Glomerular Filtration Rate mL/min (>60) mL/min (>60) Glucose Level 102 mg/dL (74-106) 130 mg/dL (74-106) H Calcium Level 9.7 mg/dL (8.6-10.2) 8.8 mg/dL (8.6-10.2) Total Bilirubin 0.4 mg/dL (0.0-1.2) Aspartate Amino Transf (AST/SGOT) 15 U/L (5-40) Alanine Aminotransferase (ALT/SGPT) 11 U/L (3-33) Alkaline Phosphatase 57 U/L (35-104) Total Protein 7.2 g/dL (6.6-8.7) Albumin 3.7 g/dL (3.5-5.2) Globulin 3.5 g/dL Albumin/Globulin Ratio 1.0 (1.0-2.7) Prothrombin Time 10.7 SEC (9.30-11.50) Prothromb Time International Ratio 1.0 (0.9-1.1) Troponin I < 0.30 ng/mL (<=0.30) Pro-B-Type Natriuretic Peptide 657 pg/mL (0-125) H Thyroid Stimulating Hormone (TSH) 1.680 uIU/mL (0.300-4.500) Free Thyroxine 1.39 ng/dL (0.86-1.85) Lactic Acid Level Pending Objective HEAD AND NECK: No JVD. LUNGS: Clear. CARDIOVASCULAR: Regular S1 and S2 with no gallop or murmur. ABDOMEN: Soft. EXTREMITIES: No pitting edema. NAI COOK Feb 12, 2017 14:13
--- NOTE | 2017-02-12 15:26 | General Progress Note ---
Assessment/Plan Status: stable Assessment/Plan 1. GI bleeding with no active bleeding - possibly due to eliquis - Hemoglobin this morning 11.7. cont protonix. s/p colonoscopy. 2. HTN - on diltiazem and off bisoprolol 5 mg daily and Avapro 75 mg 1/2 PO daily. 3. Paroxysmal A Fib - rate controlled. hold eliquis for now. cardiology following. on oral Diltiazem 60 mg tid. 4. Hyperlipidemia - on lipitor 10 mg one qhs 5. GERD and gastritis - on IV protonix. 6. Anxiety and depression - on celexa. 7. Lumbar rediculopathy and spinal stenosis 8. Insomnia - taking clonazepam 1 mg one po qhs prn. 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 Subjective Date patient seen: Feb 12, 2017 Time patient seen: 16:10 Constitutional: Reports: weakness HEENT: Reports: no symptoms Cardiovascular: Reports: no symptoms Respiratory: Reports: no symptoms Gastrointestinal/Abdominal: Reports: no symptoms Genitourinary: Reports: no symptoms Neurologic/Psychiatric: Reports: no symptoms Endocrine: Reports: no symptoms Hematologic/Lymphatic: Reports: no symptoms Allergies: Coded Allergies: No Known Allergies (Verified Allergy, Unknown, 11/16/07) Subjective Pt was seen this afternoon. she had colonoscopy done this morning showing hemerroids and diverticulosis without active bleeding. she also had A Fib this morning and she was started on Diazepam drip and now she is converted to sinus rhythm. she states she started bleeding since 4 AM today. she had colonoscopy recently. she is on Eliquis 5 mg bid with no fever or chills. no rectal bleeding today. Objective Last 24 Hour Vital Signs Date Time Temp Pulse Resp B/P (MAP) Pulse Ox O2 Delivery O2 Flow Rate FiO2 02/12/17 14:03 56 15 92/46 99 Nasal Cannula 2.0 02/12/17 13:00 55 14 89/47 99 Nasal Cannula 2.0 02/12/17 12:30 55 14 105/48 99 Nasal Cannula 2.0 02/12/17 12:00 50 02/12/17 12:00 56 16 97/53 99 Nasal Cannula 2.0 02/12/17 11:30 98.0 53 14 85/42 99 Nasal Cannula 2.0 02/12/17 11:28 55 18 100 10/4/17 11:26 54 16 99 02/12/17 10:00 84 16 133/55 100 Nasal Cannula 2.0 02/12/17 09:44 124/57 02/12/17 09:38 61 124/57 02/12/17 09:30 61 15 108/57 99 Nasal Cannula 2.0 02/12/17 09:00 61 11 124/57 99 Nasal Cannula 2.0 02/12/17 08:30 64 11 140/57 99 Nasal Cannula 2.0 02/12/17 08:00 60 02/12/17 08:00 98.1 61 12 115/55 99 Nasal Cannula 2.0 02/12/17 07:30 61 15 125/55 99 2.0 02/12/17 07:00 61 14 96/72 99 Nasal Cannula 2.0 02/12/17 06:30 63 19 110/75 99 Nasal Cannula 2.0 02/12/17 06:00 63 19 106/75 99 Nasal Cannula 2.0 02/12/17 05:30 62 19 131/56 99 Nasal Cannula 2.0 02/12/17 05:00 62 19 132/56 99 Nasal Cannula 2.0 02/12/17 04:30 62 16 116/64 99 Nasal Cannula 2.0 02/12/17 04:00 97.6 66 18 111/66 99 Nasal Cannula 2.0 02/12/17 03:30 65 18 116/72 99 Nasal Cannula 2.0 02/12/17 03:00 65 21 114/61 97 Nasal Cannula 2.0 02/12/17 02:30 99 21 115/65 97 Nasal Cannula 2.0 02/12/17 02:00 94 21 114/61 97 Nasal Cannula 2.0 02/12/17 01:30 102 14 109/66 99 Room Air 02/12/17 00:49 123 110/57 02/11/17 20:00 160 02/11/17 19:04 96.6 112 163/117 97 Room Air 02/11/17 16:00 97.3 59 17 140/69 96 Room Air Intake and Output 02/12/17 02/13/17 19:00 07:00 Intake Total 632.5 ml Balance 632.5 ml Intake Oral 120 ml IV Total 512.5 ml # Voids 1 # Bowel Movements 1 Laboratory Tests 02/11/17 20:07: White Blood Count 8.3, Red Blood Count 4.23, Hemoglobin 12.5, Hematocrit 39.2, Mean Corpuscular Volume 93, Mean Corpuscular Hemoglobin 29.6, Mean Corpuscular Hemoglobin Concent 31.9L, Red Cell Distribution Width 12.4, Platelet Count 144L , Mean Platelet Volume 11.9H, Neutrophils (%) (Auto) 62.8, Lymphocytes (%) (Auto ) 28.8, Monocytes (%) (Auto) 7.6, Eosinophils (%) (Auto) 0.1, Basophils (%) ( Auto) 0.7 02/12/17 04:50: White Blood Count 6.6, Red Blood Count 3.68L, Hemoglobin 11.7L, Hematocrit 33.5L , Mean Corpuscular Volume 91, Mean Corpuscular Hemoglobin 31.7H, Mean Corpuscular Hemoglobin Concent 34.9, Red Cell Distribution Width 12.7, Platelet Count 136L, Mean Platelet Volume 12.1H, Neutrophils (%) (Auto) 57.9, Lymphocytes (%) (Auto) 33.0, Monocytes (%) (Auto) 8.7, Eosinophils (%) (Auto) 0.0, Basophils (%) (Auto) 0.4, Prothrombin Time 10.7, Prothromb Time International Ratio 1.0, Sodium Level 141, Potassium Level 4.5, Chloride Level 103, Carbon Dioxide Level 27, Anion Gap 11, Blood Urea Nitrogen 18, Creatinine 0.9, Estimat Glomerular Filtration Rate , Glucose Level 130H, Calcium Level 8.8 , Troponin I < 0.30, Pro-B-Type Natriuretic Peptide 657H, Thyroid Stimulating Hormone (TSH) 1.680, Free Thyroxine 1.39 02/12/17 13:32: Lactic Acid Level 2.80H Height (Feet): 5 Height (Inches): 5.00 Weight (Pounds): 171 General Appearance: no apparent distress, alert Neck: non-tender, normal alignment, supple Cardiovascular: regular rhythm, bradycardia Respiratory/Chest: lungs clear, normal breath sounds, no respiratory distress Abdomen: normal bowel sounds, non tender, soft Extremities: normal range of motion, non-tender Edema: no edema noted Arm (L), no edema noted Arm (R), no edema noted Leg (L), no edema noted Leg (R), no edema noted Pedal (L), no edema noted Pedal (R), no edema noted Generalized Neurologic: no motor/sensory deficits, alert, oriented x 3, responsive Skin: warm/dry Lymphatic: normal anterior cervical (L), normal anterior cervical (R), normal posterior cervical (L), normal posterior cervical (R), normal submandibular (L) , normal submandibular (R), normal supraclavicular (L), normal supraclavicular ( R), normal axillary (L), normal axillary (R), normal inguinal (L), normal inguinal (R), normal other IVETT WALDEN Feb 12, 2017 15:26
[2017-02-12] MEDS: dilTIAZem HCl 60mg tab ORAL SCH ×2 (15:51→21:39)
[2017-02-12] MEDS ORDERED: D5 1/2NS 1000ml IV ONE (16:29)
--- NOTE | 2017-02-12 20:00 | Procedure Note ---
DATE OF PROCEDURE: 02/12/2017 SURGEON: Nick Grubbs M.D. PROCEDURE: Colonoscopy with biopsy. ANESTHESIOLOGIST: Mendy Jacobsen CRNA. INSTRUMENT: Olympus adult flexible colonoscope. INDICATION: Rectal bleeding. Reason for Procedure: The procedure, risks, benefits, and possible consequences, including hemorrhage, aspiration, perforation and infection, and alternative treatments, were explained to the patient/legal guardian by Dr. Nick Grubbs and the patient/legal guardian understood and accepted these risks. Procedure: After informed consent was obtained and the patient was adequately sedated, first rectal exam was performed, which was normal. Then, the scope was advanced from the rectum into the cecum documented by appendiceal orifice, ileocecal valve, and upper quadrant palpation. Quality of prep was very good. The patient has history of diverticulosis mostly in the left colon. No active bleeding at this time. No blood or blood products were seen anywhere in the colon. One diminutive polyp was removed from the sigmoid area. The patient has evidence of two to three internal hemorrhoids on retroflexion, not actively bleeding at this time. SUMMARY FINDINGS: 1. No active bleeding at this time. 2. Diverticulosis. 3. One colonic polyp removed. 4. Internal hemorrhoids. Recommendations: We will start liquid diet. Advance as tolerated. Monitor hemoglobin and hematocrit and transfuse as needed. Treat for hemorrhoids. At this time, we are not exactly sure where she bled from. We will follow closely. The prior pneumatosis cystoides intestinalis relatively resolved at this time. I want to thank, Dr. Tl Israel, for this kind referral. Nick Grubbs M.D. DR: SHIRAZ JOB#: [id number] CC: Tl Israel M.D.; Fax#: [phone]
[2017-02-12] MEDS ORDERED: Donepezil 10mg tab ORAL SCH (21:00)
[2017-02-13] VITALS: BP 98/55
[2017-02-13] MEDS: D5 1/2NS 1,000 ML IV SCH ×2 (01:23→14:36)
[2017-02-13 04:00] VITALS: BP 102/53
[2017-02-13 05:16] LABS: BASOPHILS % (AUTO) 0.5 % (0.0-2.0); EOSINOPHILS % (AUTO) 0.3 % (0.0-3.0); LYMPHOCYTES % (AUTO) 41.3 % (20.0-45.0); MEAN CORPUSCULAR HEMOGLOBIN 31.6 PG (27.0-31.0); MEAN CORPUSCULAR HGB CONC 34.5 G/DL (32.0-36.0); MEAN CORPUSCULAR VOLUME 92 FL (80-99); MEAN PLATELET VOLUME 11.5 FL (6.5-10.1); MONOCYTES % (AUTO) 9.4 % (1.0-10.0); NEUTROPHILS % (AUTO) 48.5 % (45.0-75.0); PLATELET COUNT 105 K/UL (150-450); RED BLOOD COUNT 2.88 M/UL (4.20-5.40); RED CELL DISTRIBUTION WIDTH 12.4 % (11.6-14.8); WHITE BLOOD COUNT 5.6 K/UL (4.8-10.8)
[2017-02-13 05:29] LABS: ANION GAP 9 (5-15); CALCIUM 8.2 mg/dL (8.6-10.2); CARBON DIOXIDE 24 mEQ/L (20-30); CHLORIDE 106 mEQ/L (98-107); CREATININE 0.7 mg/dL (0.5-0.9); HEMOLYSIS 1; POTASSIUM 3.8 mEQ/L (3.4-4.9); SODIUM 139 mEQ/L (135-145)
[2017-02-13] MEDS: dilTIAZem HCl 60mg tab ORAL SCH ×2 (05:54→14:38)
[2017-02-13 08:00] VITALS: BP 101/51
[2017-02-13] MEDS ORDERED: Citalopram 20mg Tab ORAL SCH (09:00)
[2017-02-13] MEDS ORDERED: Pantoprazole Inj IV SCH (09:00)
[2017-02-13] MEDS ORDERED: Cefepime HCl 1 GM in D5W 55 ML IVPB SCH (11:00)
--- NOTE | 2017-02-13 11:56 | GI Progress Note ---
Assessment/Plan Problems: (1) Rectal bleeding ICD Codes: K62.5 - Hemorrhage of anus and rectum SNOMED: 12167641 (2) Bloating ICD Codes: R14.0 - Abdominal distension (gaseous) SNOMED: 028077273 (3) GERD (gastroesophageal reflux disease) ICD Codes: K21.9 - Gastro-esophageal reflux disease without esophagitis SNOMED: 798954396 Status: unchanged Status Narrative Discussed with Dr. Orellana. Assessment/Plan s/p colonoscopy SUMMARY FINDINGS: 1. No active bleeding at this time. 2. Diverticulosis. 3. One colonic polyp removed. 4. Internal hemorrhoids. 5. Prior pneumatosis cystoides intestinalis relatively resolved at this time. 6. Unknown source of bleed Recommendations: adv to soft cardiac diet monitor H&H, transfuse prn hemorrhoid treatment >> anusol prn ppi fu labs Subjective Gastrointestinal/Abdominal: Reports: no symptoms Objective Last 24 Hour Vital Signs Date Time Temp Pulse Resp B/P (MAP) Pulse Ox O2 Delivery O2 Flow Rate FiO2 02/13/17 08:41 63 02/13/17 08:00 97.9 63 18 101/51 94 Nasal Cannula 2.0 02/13/17 05:54 61 102/53 02/13/17 04:00 61 02/13/17 04:00 97.8 59 17 102/53 96 Nasal Cannula 2.0 02/13/17 00:00 98.5 57 17 98/55 97 Nasal Cannula 2.0 02/12/17 23:00 57 19 95/44 96 Nasal Cannula 2.0 02/12/17 22:00 55 23 99/42 99 Nasal Cannula 2.0 02/12/17 21:39 60 107/57 02/12/17 21:00 57 15 107/57 98 Nasal Cannula 2.0 02/12/17 20:00 54 02/12/17 20:00 98.4 55 16 101/48 98 Nasal Cannula 2.0 54 02/12/17 19:00 55 16 92/60 99 Nasal Cannula 2.0 02/12/17 18:00 54 15 95/49 99 Nasal Cannula 2.0 02/12/17 17:00 59 14 100/51 99 Nasal Cannula 2.0 02/12/17 16:00 98.2 57 15 99/50 99 Nasal Cannula 2.0 02/12/17 15:51 57 93/43 02/12/17 15:00 58 14 93/43 99 Nasal Cannula 2.0 02/12/17 14:03 56 15 92/46 99 Nasal Cannula 2.0 02/12/17 13:00 55 14 89/47 99 Nasal Cannula 2.0 02/12/17 12:30 55 14 105/48 99 Nasal Cannula 2.0 02/12/17 12:00 50 02/12/17 12:00 56 16 97/53 99 Nasal Cannula 2.0 Intake and Output 02/13/17 02/14/17 19:00 07:00 Intake Total 225 ml Balance 225 ml IV Total 225 ml # Voids 1 # Bowel Movements 1 Laboratory Tests Test 02/12/17 13:32 02/13/17 04:50 Lactic Acid Level 2.80 mmol/L (0.66-2.22) H White Blood Count 5.6 K/UL (4.8-10.8) Red Blood Count 2.88 M/UL (4.20-5.40) L Hemoglobin 9.1 G/DL (12.0-16.0) L Hematocrit 26.4 % (37.0-47.0) L Mean Corpuscular Volume 92 FL (80-99) Mean Corpuscular Hemoglobin 31.6 PG (27.0-31.0) H Mean Corpuscular Hemoglobin Concent 34.5 G/DL (32.0-36.0) Red Cell Distribution Width 12.4 % (11.6-14.8) Platelet Count 105 K/UL (150-450) L Mean Platelet Volume 11.5 FL (6.5-10.1) H Neutrophils (%) (Auto) 48.5 % (45.0-75.0) Lymphocytes (%) (Auto) 41.3 % (20.0-45.0) Monocytes (%) (Auto) 9.4 % (1.0-10.0) Eosinophils (%) (Auto) 0.3 % (0.0-3.0) Basophils (%) (Auto) 0.5 % (0.0-2.0) Sodium Level 139 mEQ/L (135-145) Potassium Level 3.8 mEQ/L (3.4-4.9) Chloride Level 106 mEQ/L (98-107) Carbon Dioxide Level 24 mEQ/L (20-30) Anion Gap 9 (5-15) Blood Urea Nitrogen 10 mg/dL (7-23) Creatinine 0.7 mg/dL (0.5-0.9) Estimat Glomerular Filtration Rate mL/min (>60) Glucose Level 103 mg/dL (74-106) Calcium Level 8.2 mg/dL (8.6-10.2) L Height (Feet): 5 Height (Inches): 5.00 Weight (Pounds): 171 General Appearance: no apparent distress, alert Cardiovascular: regular rhythm Respiratory/Chest: normal breath sounds, no respiratory distress Abdominal Exam: normal bowel sounds, non tender, soft Objective BM x 1 today Hemalatha Lazcano N.P. Feb 13, 2017 11:56
[2017-02-13 12:11] VITALS: BP 114/50
[2017-02-13] MEDS ORDERED: D5 1/2NS 1000ml IV ONE ×4 (14:43→19:36)
[2017-02-13] MEDS ORDERED: Tubing IV Secondary IV ONE ×2 (14:44→15:20)
[2017-02-13] MEDS ORDERED: NS 275ml ONE ×2 (14:44→15:20)
--- NOTE | 2017-02-13 15:55 | General Progress Note ---
Assessment/Plan Status: stable Assessment/Plan 1. GI bleeding - possibly due to eliquis - Hemoglobin this morning is 9.1 and stable. Cont protonix. s/p colonoscopy with no active bleeding. No bleeding today. Patient will f/u in my office tomorrow for repeat CBC. 2. HTN - on diltiazem 60 mg TID. 3. Paroxysmal A Fib - rate controlled. hold eliquis for now. cardiology following. on oral Diltiazem 60 mg tid. f/u with rn document improvement specialist in one wk. 4. Hyperlipidemia - on lipitor 10 mg one qhs 5. GERD and gastritis - cont oral protonix. 6. Anxiety and depression - on celexa. 7. Lumbar rediculopathy and spinal stenosis 8. Insomnia - taking clonazepam 1 mg one po qhs prn. 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 Subjective Date patient seen: Feb 13, 2017 Time patient seen: 16:30 Constitutional: Reports: no symptoms HEENT: Reports: no symptoms Cardiovascular: Reports: no symptoms Respiratory: Reports: no symptoms Gastrointestinal/Abdominal: Reports: black stools Genitourinary: Reports: no symptoms Neurologic/Psychiatric: Reports: no symptoms Endocrine: Reports: no symptoms Hematologic/Lymphatic: Reports: anemia Allergies: Coded Allergies: No Known Allergies (Verified Allergy, Unknown, 11/16/07) Subjective Today, she is doing well. she is s/p colonoscopy that didn't show any active bleeding. She denies any sob or chest pain. no fever or chills. no palpitation. no lightheadedness. Objective Last 24 Hour Vital Signs Date Time Temp Pulse Resp B/P (MAP) Pulse Ox O2 Delivery O2 Flow Rate FiO2 02/13/17 14:38 90 110/50 02/13/17 12:11 98.4 59 18 114/50 96 Nasal Cannula 2.0 02/13/17 11:32 61 02/13/17 08:41 63 02/13/17 08:00 97.9 63 18 101/51 94 Nasal Cannula 2.0 02/13/17 05:54 61 102/53 02/13/17 04:00 61 02/13/17 04:00 97.8 59 17 102/53 96 Nasal Cannula 2.0 02/13/17 00:00 98.5 57 17 98/55 97 Nasal Cannula 2.0 02/12/17 23:00 57 19 95/44 96 Nasal Cannula 2.0 02/12/17 22:00 55 23 99/42 99 Nasal Cannula 2.0 02/12/17 21:39 60 107/57 02/12/17 21:00 57 15 107/57 98 Nasal Cannula 2.0 02/12/17 20:00 54 02/12/17 20:00 98.4 55 16 101/48 98 Nasal Cannula 2.0 54 02/12/17 19:00 55 16 92/60 99 Nasal Cannula 2.0 02/12/17 18:00 54 15 95/49 99 Nasal Cannula 2.0 02/12/17 17:00 59 14 100/51 99 Nasal Cannula 2.0 02/12/17 16:00 98.2 57 15 99/50 99 Nasal Cannula 2.0 02/12/17 15:51 57 93/43 Intake and Output 02/13/17 02/14/17 19:00 07:00 Intake Total 375 ml Balance 375 ml IV Total 375 ml # Voids 1 # Bowel Movements 2 Laboratory Tests 02/13/17 04:50: White Blood Count 5.6, Red Blood Count 2.88L, Hemoglobin 9.1L, Hematocrit 26.4L , Mean Corpuscular Volume 92, Mean Corpuscular Hemoglobin 31.6H, Mean Corpuscular Hemoglobin Concent 34.5, Red Cell Distribution Width 12.4, Platelet Count 105L, Mean Platelet Volume 11.5H, Neutrophils (%) (Auto) 48.5, Lymphocytes (%) (Auto) 41.3, Monocytes (%) (Auto) 9.4, Eosinophils (%) (Auto) 0.3, Basophils (%) (Auto) 0.5, Sodium Level 139, Potassium Level 3.8, Chloride Level 106, Carbon Dioxide Level 24, Anion Gap 9, Blood Urea Nitrogen 10, Creatinine 0.7, Estimat Glomerular Filtration Rate , Glucose Level 103, Calcium Level 8.2L Height (Feet): 5 Height (Inches): 5.00 Weight (Pounds): 171 General Appearance: no apparent distress, alert Neck: non-tender, normal alignment, supple Cardiovascular: normal peripheral pulses, normal rate, regular rhythm Respiratory/Chest: lungs clear, normal breath sounds, no respiratory distress Abdomen: normal bowel sounds, non tender, soft Extremities: normal range of motion, non-tender Edema: no edema noted Arm (L), no edema noted Arm (R), no edema noted Leg (L), no edema noted Leg (R), no edema noted Pedal (L), no edema noted Pedal (R), no edema noted Generalized Neurologic: alert, oriented x 3, responsive Skin: warm/dry Lymphatic: normal anterior cervical (L), normal anterior cervical (R), normal posterior cervical (L), normal posterior cervical (R), normal submandibular (L) , normal submandibular (R), normal supraclavicular (L), normal supraclavicular ( R), normal axillary (L), normal axillary (R), normal inguinal (L), normal inguinal (R), normal other IVETT WALDEN Feb 13, 2017 15:55
[2017-02-13] MEDS ORDERED: CARDIZEM60 MG ORAL (16:07)
[2017-02-13 16:20] VITALS: BP 134/61
--- NOTE | 2017-02-13 17:27 | Cardiac Electrophysiology PN ---
Assessment/Plan Assessment/Plan 1. Paroxysmal atrial fibrillation. Eliquis was discontinued in view of rectal bleed. On Cardizem 60 tid. 2. Hypertension, continue Cardizem 60 tid. 3. Hyperlipidemia, on Lipitor. 4. Rectal bleed. S/P Colonoscopy by Dr. Grubbs, currently on Protonix. 5. Dementia, on Aricept. 6. Depression. Klonopin and Celexa. MANINDER RN at bedside Subjective Subjective In SR . No further bleeding. No chest pain or SOB. Objective Last 24 Hour Vital Signs Date Time Temp Pulse Resp B/P (MAP) Pulse Ox O2 Delivery O2 Flow Rate FiO2 02/13/17 17:09 73 02/13/17 16:20 98.5 68 18 134/61 95 Room Air 02/13/17 14:38 90 110/50 02/13/17 12:11 98.4 59 18 114/50 96 Nasal Cannula 2.0 02/13/17 11:32 61 02/13/17 08:41 63 02/13/17 08:00 97.9 63 18 101/51 94 Nasal Cannula 2.0 02/13/17 05:54 61 102/53 02/13/17 04:00 61 02/13/17 04:00 97.8 59 17 102/53 96 Nasal Cannula 2.0 02/13/17 00:00 98.5 57 17 98/55 97 Nasal Cannula 2.0 02/12/17 23:00 57 19 95/44 96 Nasal Cannula 2.0 02/12/17 22:00 55 23 99/42 99 Nasal Cannula 2.0 02/12/17 21:39 60 107/57 02/12/17 21:00 57 15 107/57 98 Nasal Cannula 2.0 02/12/17 20:00 54 02/12/17 20:00 98.4 55 16 101/48 98 Nasal Cannula 2.0 54 02/12/17 19:00 55 16 92/60 99 Nasal Cannula 2.0 02/12/17 18:00 54 15 95/49 99 Nasal Cannula 2.0 Intake and Output 02/13/17 02/14/17 19:00 07:00 Intake Total 775 ml Balance 775 ml IV Total 775 ml # Voids 3 # Bowel Movements 7 Laboratory Tests Test 02/13/17 04:50 White Blood Count 5.6 K/UL (4.8-10.8) Red Blood Count 2.88 M/UL (4.20-5.40) L Hemoglobin 9.1 G/DL (12.0-16.0) L Hematocrit 26.4 % (37.0-47.0) L Mean Corpuscular Volume 92 FL (80-99) Mean Corpuscular Hemoglobin 31.6 PG (27.0-31.0) H Mean Corpuscular Hemoglobin Concent 34.5 G/DL (32.0-36.0) Red Cell Distribution Width 12.4 % (11.6-14.8) Platelet Count 105 K/UL (150-450) L Mean Platelet Volume 11.5 FL (6.5-10.1) H Neutrophils (%) (Auto) 48.5 % (45.0-75.0) Lymphocytes (%) (Auto) 41.3 % (20.0-45.0) Monocytes (%) (Auto) 9.4 % (1.0-10.0) Eosinophils (%) (Auto) 0.3 % (0.0-3.0) Basophils (%) (Auto) 0.5 % (0.0-2.0) Sodium Level 139 mEQ/L (135-145) Potassium Level 3.8 mEQ/L (3.4-4.9) Chloride Level 106 mEQ/L (98-107) Carbon Dioxide Level 24 mEQ/L (20-30) Anion Gap 9 (5-15) Blood Urea Nitrogen 10 mg/dL (7-23) Creatinine 0.7 mg/dL (0.5-0.9) Estimat Glomerular Filtration Rate mL/min (>60) Glucose Level 103 mg/dL (74-106) Calcium Level 8.2 mg/dL (8.6-10.2) L Objective HEAD AND NECK: No JVD. LUNGS: Clear. CARDIOVASCULAR: Regular S1 and S2 with no gallop or murmur. ABDOMEN: Soft. EXTREMITIES: No pitting edema. NAI COOK Feb 13, 2017 17:26
[2017-02-13] MEDS ORDERED: Donepezil 10mg tab ORAL SCH (21:00)
[2017-02-14] MEDS ORDERED: Citalopram Hydrobromide 10mg Tab ORAL SCH (09:00)
--- NOTE | 2017-02-16 13:30 | Discharge Summary ---
DATE OF ADMISSION: 02/11/2017 DATE OF DISCHARGE: 02/13/2017 Brief history and Hospital Course: This is a 71-year-old [place] Citizen female, who was seen in Dr. Grubbs's office on 02/11/2017, in the morning and complaining of GI bleed with bright red blood per rectum. Dr. Grubbs had decided to transfer the patient for direct admit for GI bleed. The patient was admitted to the medical floor and then transferred to the telemetry and was started on IV Protonix for GI bleed. The patient had a history of atrial fibrillation and was taking Eliquis 5 mg b.i.d. and the last dose was taken the evening prior to admission. The patient's Eliquis was held in the hospital and colonoscopy was done and did not show any active bleeding. The patient's hemoglobin dropped from 13.7 to 9.1 after two days. However, the patient was stable and had no complication during the hospital stay and it was decided to discharge the patient home, followed up in the office the following day for a repeat CBC. The patient also had atrial fibrillation and her home medication was switched to diltiazem 60 mg t.i.d. by Cardiology, Dr. Luna. The patient returned back to sinus rhythm while on Cardizem and it was decided that we will hold off on Eliquis until the patient's hemoglobin stabilizes in a week or two and we will restart Eliquis as outpatient. The patient will follow up with annealing torch operator as outpatient. DISCHARGE DIAGNOSES: 1. Gastrointestinal bleed. 2. Hypertension. 3. Paroxysmal atrial fibrillation. 4. Hyperlipidemia. 5. Gastroesophageal reflux disease. 6. Anxiety and depression. 7. History of lumbar radiculopathy in the spinous process. 8. Insomnia. 9. Mild Alzheimer disease. Discharge Medications: Include Cardizem 60 mg one p.o. every eight hours, atorvastatin 20 mg nightly, citalopram 20 mg daily, Aricept 10 mg daily, Nexium 40 mg daily, and Zantac 150 mg daily, and we will discontinue bisoprolol 5 mg daily and we will also discontinue the Avapro 75 mg. Disposition: The patient will be discharged home. She will follow up in my office in one day. She will also follow up with Dr. Grubbs in one week and she will follow up with the annealing torch operator in one week as well. Tl Israel M.D. DR: Timmy JOB#: [id number] CC: RAINA
--- NOTE | 2017-02-17 08:28 | Cardiology Report ---
APPROVED REPORT EXAM: Two-dimensional and M-mode echocardiogram with Doppler and color Doppler. INDICATION Palpitations M-Mode DIMENSIONS IVSd1.1 (0.7-1.1cm)Left Atrium (MM)3.4 (1.6-4.0cm) LVDd4.0 (3.5-5.6cm)Aortic Root2.9 (2.0-3.7cm) PWd0.8 (0.7-1.1cm)Aortic Cusp Exc.2.1 (1.5-2.0cm) LVDs1.2 (2.5-4.0cm) PWs2.1 cm Normal left ventricular chamber size, systolic function and wall motion. Left ventricular ejection fraction estimated to be 55 %. Borderline left ventricular hypertrophy. Anterior Echo-free space, may be due to pericardial fat or effusion. Left atrial size at upper limits of normal. Right cardiac chamber sizes are within normal limits. Mild focal aortic valve sclerosis with adequate cusp excursion. Mildly thickened mitral valve leaflets with normal excursion. Mild mitral annulus and aortic root calcification. Pulmonic valve not well visualized. Normal tricuspid valve structure. IVC at normal size with physiological collapse. A color flow and spectral Doppler study was performed and revealed: No aortic insufficiency. Moderate mitral regurgitation. Mitral inflow indicate normal left ventricular diastolic function. Trace tricuspid regurgitation. Tricuspid systolic velocities suggests peak right ventricular systolic pressure of 11 mmHg. Trace pulmonic regurgitation present.
--- NOTE | 2017-02-20 23:16 | Cardiology Report ---
APPROVED REPORT EKG Measurement Heart [id number] Atrial fibrillation with rapid ventricular response with premature ventricular or aberrantly conducted complexes Nonspecific T wave abnormality Abnormal ECG
== END 2017-02-13 19:37 | disposition home or self-care (01) | DRG 379 ==
LOC: 4E 11:41 → 2E 18:26 → ICU 23:41 → 2W 02-12 23:31
PROC: 0DBN8ZZ Excision of Sigmoid Colon, Via Natural or Artificial Opening Endoscopic (ICD-10-PCS; principal; 2017-02-12 10:55)
DX: K92.2 Gastrointestinal hemorrhage, unspecified (principal); I48.0 Paroxysmal atrial fibrillation; G30.9 Alzheimer's disease, unspecified; F02.80 Dementia in other diseases classified elsewhere, unspecified severity, without behavioral disturbance, psychotic disturbance, mood disturbance, and anxiety; I10 Essential (primary) hypertension; K57.90 Diverticulosis of intestine, part unspecified, without perforation or abscess without bleeding; Z98.890 Other specified postprocedural states; Z79.01 Long term (current) use of anticoagulants; K21.9 Gastro-esophageal reflux disease without esophagitis; E78.5 Hyperlipidemia, unspecified; G47.00 Insomnia, unspecified; Z86.010 Personal history of colon polyps; F32.9 Major depressive disorder, single episode, unspecified; K64.8 Other hemorrhoids; K63.5 Polyp of colon; I25.10 Atherosclerotic heart disease of native coronary artery without angina pectoris; K29.70 Gastritis, unspecified, without bleeding; F41.8 Other specified anxiety disorders; M54.16 Radiculopathy, lumbar region; M48.00 Spinal stenosis, site unspecified
CPT/HCPCS: 36415; 80048; 80053; 83605; 83880; 84439; 84443; 84484; 85025; 85610; 86850; 86900; 86901; 93005; 93306; 94003; 94150; 99211; J2405